=== PATIENT | female | born 1950 | race Caucasian/White ===

== ENCOUNTER 2017-05-23 12:06 | Inpatient (IN) | payer MEDICARE, OTHER ==
--- NOTE | ~2017-05-23 | HP ---
History And Physical [address] [place]. [address] NAME: CHIP HAINES : 50 STATUS : ADM IN [facility]#: [id number] AGE: 66 ADM/REG DATE : 05/23/17 MR#: [id number] REPORT SERV DATE: 05/23/17 DICTATED BY: RENEA SARAVIA DATE: 05/23/17 REPORT STATUS : Draft TRANSCRIBED BY: MODL DATE: 05/23/17 DATE OF ADMISSION: 05/23/2017 CHIEF COMPLAINT: Worsening shortness of breath. HISTORY OF PRESENTING ILLNESS: Ms. Haines is a 66-year-old female with a history of hypertension, coronary artery disease, hyperlipidemia, and pulmonary embolism who presented to the hospital with a complaint of worsening shortness of breath. Of note, the patient was discharged from the hospital on 12/10/2014 after being managed for bilateral pulmonary embolism. At that time, the patient was placed on Eliquis. The patient states that she was on medication for about a year and was taken off the medication by her outbound sales specialist. The patient also reports that a coagulopathy workup was performed by a outbound sales specialist which was negative. The patient states that her symptoms started about a month ago with progressive shortness of breath. She states that she was finding it more difficult to perform activities of daily living. She thought that her symptoms were transient and which is why she did not present today to the hospital earlier. However, she says that yesterday night, she felt severely short of breath, went to bed. Upon awakening this morning, she found it very difficult getting out of bed and could not do any activity. She decided to present to the emergency room to have her symptoms evaluated. On presentation to the emergency room, preliminary workup included blood work which noted an elevated troponin at 0.07. Workup also included a CTA of the chest which noted extensive bilateral pulmonary emboli. The patient was subsequently admitted to Hospitalist Service for further management. At the time of my evaluation, the patient was on IV heparin, and she was resting counseled comfortably in bed. She was not tachycardic and was saturating appropriately on 2 to 3 L nasal cannula. She denied any chest pain, lightheadedness, dizziness, or any syncopal episodes. She denied any nausea, any vomiting, or any fevers. REVIEW OF SYSTEMS: A 12-point review of system was performed. All systems were negative except as noted in the HPI. PAST MEDICAL HISTORY: 1. Hypertension. 2. Hyperlipidemia. 3. Osteoporosis. PAST SURGICAL HISTORY: Significant for foot surgery, tubal ligation. FAMILY HISTORY: Significant for: 1. CVA in mother. 2. Hypertension. 3. Hyperlipidemia. SOCIAL HISTORY: The patient admits to tobacco use stating that she currently smokes about one to three sticks of cigarette a week. She could not quantify how long she has been smoking for saying that it has been a very long time. Alcohol use, the patient currently History And Physical [address] [address] NAME: CHIP HAINES : 50 STATUS : ADM IN [facility]#: [id number] AGE: 66 ADM/REG DATE : 05/23/17 MR#: [id number] REPORT SERV DATE: 05/23/17 DICTATED BY: RENEA SARAVIA DATE: 05/23/17 REPORT STATUS : Draft TRANSCRIBED BY: HARITHA DATE: 05/23/17 uses alcohol in social settings. She also admitted to remote use of marijuana use, however, states she states she quit about 23 years ago. ALLERGIES: THE PATIENT IS ALLERGIC TO BACTRIM AND NITROFURANTOIN. PHYSICAL EXAMINATION: VITAL SIGNS: On presentation, blood pressure 109/55 with a pulse of 97, temperature 36.5, pulse 103, respiration 22, O2 saturation on room air 90%, however, increased to 98% on 2 L nasal cannula. GENERAL: The patient lying in bed, appeared stated age, in no acute distress. Speaking in full sentences. HEENT: Normocephalic and atraumatic. Extraocular motors intact. Oral mucosa moist. NECK: Trachea midline and symmetric. No JVD noted. No thyromegaly present. No lymphadenopathy palpated. CHEST: Nontender to palpation. CARDIOVASCULAR: Regular rate and rhythm. S1, S2. No murmurs, rubs, or gallops. LUNGS: Clear to auscultation bilaterally. No wheezing, rales, or rhonchi. ABDOMEN: Positive bowel sounds. Nontender. Nondistended. No masses palpated. EXTREMITIES: No cyanosis, no clubbing, no edema. NEUROLOGIC: Alert and oriented x3. No focal deficits appreciated. LABORATORY DATA: WBC 8.2, hemoglobin 13.8, hematocrit 40.1, platelets 221. Sodium 134, potassium 3.3, chloride 98, bicarb 30, BUN 16, creatinine 1, glucose 131. Troponin 0.07. IMAGING: CTA chest. Impression: 1. Extensive bilateral pulmonary emboli. 2. Small region of consolidation in the lingula. The lung steiner are otherwise clear. ASSESSMENT AND PLAN: 1. Pulmonary embolism, bilateral. The patient is hemodynamically stable which categorizes this as submassive. The patient reports current tobacco use which places this as provoked. The patient has a history of bilateral pulmonary embolism during which was managed here in the hospital in October 2014. Given recurrence of pulmonary embolism, the patient will need to be on indefinite anticoagulation therapy. However, for now, given the extensiveness of pulmonary emboli, we will consult Pulmonology for assistance and management. I will continue the patient on a heparin drip for now currently because the patient is hemodynamically stable. Vitals are all within normal limits. No indication for thrombolytic therapy at this point, however, as our course progress that may change. 2. Hypertension: Controlled. We will continue home medications. 3. Elevated troponin at 0.07, likely secondary to demand ischemia. We will trend troponin. Coronary artery disease, stable. The patient's atherosclerotic cardiovascular disease score is 10.3 indicating high-intensity statin therapy. Plan, we will discontinue simvastatin, start atorvastatin 40 mg p.o. daily. 4. Hyperlipidemia. We will manage as above. 5. Tobacco dependence. Spent time explaining to the patient the severe risk of continued smoking in the sense of recurrent bilateral pulmonary embolism. The patient is willing History And Physical [address] [address] NAME: CHIP HAINES : 50 STATUS : ADM IN PAT#: [id number] AGE: 66 ADM/REG DATE : 05/23/17 MR#: [id number] REPORT SERV DATE: 05/23/17 DICTATED BY: RENEA SARAVIA DATE: 05/23/17 REPORT STATUS : Draft TRANSCRIBED BY: HARITHA DATE: 05/23/[address] the patient on nicotine patch for now. 6. Osteoporosis. Currently on alendronate at home. We will continue current therapy. 7. Hypokalemia. Potassium at 3.3, we will replete potassium and monitor. CODE STATUS: The patient wishes to be full code at this time. The patient is already on a heparin drip. DOMINGUEZ/HARITHA Renea Saravia MD / [id number] CC: Jonas Manzano M.D.
--- NOTE | ~2017-05-23 | CN ---
Consultation Report [facility] [address] [place]. [address] NAME: CHIP HAINES : 50 STATUS : ADM IN PAT#: [id number] AGE: 66 ADM/REG DATE : 05/23/17 MR#: [id number] REPORT SERV DATE: 05/24/17 DICTATED BY: ЮЛИЯ IRVIN IV DATE: 05/24/17 REPORT STATUS : Draft TRANSCRIBED BY: MODMarlo DATE: 05/24/17 PULMONARY CONSULTATION DATE OF CONSULTATION: 05/24/2017 REASON FOR REQUEST: Bilateral pulmonary embolism. HISTORY OF PRESENT ILLNESS: History was obtained from the records and from the patient. Ms. Haines is a 66-year-old female with a past history of DVT and pulmonary embolism, COPD, tobacco dependency, hypertension, hyperlipidemia, who was admitted with recurrent pulmonary embolism. The patient was hospitalized in 10/2014 for bilateral pulmonary embolism. She had a previous history of left leg DVT in 2008. She was followed by an outside marker shipments and reportedly had her anticoagulation stopped last year. She states originally was for evaluation of hypercoagulable state; however, the medication was never resumed, and she is not sure of the results of the study, and never was provided followup. She has had problems with intermittent pain in her left leg for which she underwent evaluation in March with a repeat ultrasound demonstrating no clot. It was felt to be secondary to orthopedic injuries. She has noted waxing and waning dyspnea on exertion over the last few weeks associated with some chest tightness and increased cough and shortness of breath. She felt some of this was secondary to obstructive lung disease. She has been compliant with her Dulera as well as her Combivent. Because of the more acute symptoms over the last 48 hours, she had evaluation emergency room where CT angiogram demonstrated bilateral pulmonary embolism. Subsequent ultrasound demonstrated a left lower extremity clot. We were asked to assist in her care. The patient continues to smoke adding to her hypercoagulable state. She has two previous clots as noted above. The patient reportedly snores, though is unaware of apneic episodes. Sleep is nonrestorative. However, she does not complain of significant sedentary hypersomnolence. PULMONARY HISTORY: Remarkable for no history of childhood asthma or previous pneumonia. She has a history of adult COPD. She has more than [id number] smoker, who continues to smoke by her report only two cigarettes a week. She is a home health nurse. She is up-to-date on her immunizations. PAST MEDICAL HISTORY: Remarkable for: 1. History of DVT and pulmonary embolism. 2. COPD. 3. Tobacco use. 4. Hypertension. 5. Hyperlipidemia. SURGERIES: 1. She had tonsillectomy and adenoidectomy. 2. Abortions. Consultation Report [address] [place]. [address] NAME: CHIP HAINES : 50 STATUS : ADM IN [facility]#: [id number] AGE: 66 ADM/REG DATE : 05/23/17 MR#: [id number] REPORT SERV DATE: 05/24/17 DICTATED BY: ЮЛИЯ IRVIN IV DATE: 05/24/17 REPORT STATUS : Draft TRANSCRIBED BY: HARITHA DATE: 05/24/17 3. Right foot surgery. 4. Tubal ligation. ALLERGIES: SHE IS ALLERGIC TO SULFA DRUGS AND MACRODANTIN WITH A RASH. CURRENT MEDICATIONS: She is on a heparin drip, Caltrate D 600 mg twice a day, Claritin 10 mg daily, Diovan 80 mg daily, hydrochlorothiazide 12.5 mg daily, Dulera 2 puffs twice a day, Flonase 2 sprays each nostril daily, Habitrol patch 14 mg daily, hydrochlorothiazide 12.5 mg daily, Lipitor 40 mg at bedtime, and Refresh eye drops. SOCIAL HISTORY: Remarkable for tobacco use as above. She has rare social alcohol use. She used marijuana and cocaine in the distant past, but not in the last multiple years. FAMILY HISTORY: Remarkable for father requiring a pacemaker and a stroke in her mother. REVIEW OF SYSTEMS: 14-systems reviewed and pertinent positives as noted above. PHYSICAL EXAMINATION: GENERAL: This is an obese, elderly female, with intermittent cough though in no distress. She is on supplemental oxygen. VITAL SIGNS: Temperature is 98.1, pulse is 73, respiratory rate is 20, saturations are 100% on 2 L, and blood pressure is 109/60. HEENT: Normocephalic, atraumatic. Extraocular movements are intact. Pupils react to light. Sclerae and conjunctivae normal. She has nasal cannula in place. She has a Mallampati III airway with narrowing of the posterior pharyngeal space. NECK: Without any palpable lymphadenopathy or thyromegaly. CHEST: The patient has decreased breath sounds symmetrically. There are some basilar inspiratory crackles. There is a prolonged expiratory phase with expiratory wheezes. No rhonchi are noted. CARDIOVASCULAR: Jugular venous pulsations are difficult to elicit. She has 1+ carotid upstrokes. No obvious bruit. She has a regular distant S1, S2 with no clear murmur or S3. Peripheral pulses are diminished. ABDOMEN: Obese, soft, and nontender. There are hypoactive bowel sounds. There is no palpable hepatosplenomegaly or masses. Surgical scars are noted. EXTREMITIES: Demonstrate no cyanosis, clubbing, edema, or palpable cords. She has some varicose veins. NEUROLOGIC: Strength is 5/5 and sensation intact to light touch. LABORATORY DATA: Chest CT scan demonstrates bilateral pulmonary emboli, some in the regions of the previous clots with no study between these to document clearance. She has by report ultrasound demonstrating left lower extremity clot, which was not noted on the March study. CBC: Hemoglobin 11.4, hematocrit 33.9, platelet count 176,000, and white blood cell count is 5.9. Consultation Report [facility] [address] [place]. [address] NAME: CHIP HAINES : 50 STATUS : ADM IN [facility]#: [id number] AGE: 66 ADM/REG DATE : 05/23/17 MR#: [id number] REPORT SERV DATE: 05/24/17 DICTATED BY: ЮЛИЯ IRVIN IV DATE: 05/24/17 REPORT STATUS : Draft TRANSCRIBED BY: HARITHA DATE: 05/24/17 Chemistry: Sodium 140, potassium 3.7, chloride 105, bicarbonate was 30, BUN 13, creatinine 0.76, glucose of 126, Mag and phos are both normal. Albumin was 2.3. Troponin was 0.07 and now at 0.03. ASSESSMENT AND PLAN: 1. Hematologic. The patient should have remained on anticoagulation after the October study with a history of two clots in the past. CT angiogram should be obtained in three months to evaluate for clot resolution. There may be a component of chronic clot which never previously cleared. We will change to Eliquis 10 mg twice a day and stop heparin at that time. 2. Respiratory. The patient likely has significant underlying chronic obstructive pulmonary disease. She will be given prednisone 40 mg now, then every morning. We will add Spiriva 1 capsule daily. Remain on the Dulera. Albuterol be given q.4 hours while awake and q.2 hours as needed. Outpatient sleep evaluation for clinical obstructive sleep apnea. 3. Cardiovascular. There is no evidence for right ventricular dysfunction or elevated right-sided pressures on the echocardiogram obtained yesterday. Troponin bump was likely secondary to the pulmonary embolism. 4. Renal. Potassium has been replaced. We will repeat electrolytes tomorrow. 5. Neurologic. We reviewed the adverse effects of continued tobacco use even at her reported minimal amount and its effect on hypercoagulability. She is on Habitrol patch. More than 5 minutes was sent with smoking cessation recommendations. Thank you for consulting us. We will follow the patient with you. ANITRA/HARITHA Юлия Irvin IV, M.D. / [id number] CC: MD Marcus Vargas M.D.
--- NOTE | ~2017-05-23 | DS ---
Discharge Summary [facility] [address] [place]. [address] NAME: CHIP HAINES : 50 STATUS : DIS IN PAT#: [id number] AGE: 66 ADM/REG DATE : 05/23/17 MR#: [id number] REPORT SERV DATE: 05/27/17 DICTATED BY: RENEA SARAVIA DATE: 05/26/17 REPORT STATUS : Draft TRANSCRIBED BY: MODL DATE: 05/26/17 ADMISSION DATE: 05/23/2017 DISCHARGE DATE: 05/26/2017 Ms. Haines is a 66-year-old female with a history of hypertension, coronary artery disease, hyperlipidemia, and pulmonary embolism in 2013 who presented to the hospital with a complaint of shortness of breath and was found to have bilateral extensive pulmonary emboli and subsequently admitted under Hospitalist Service for further management. For further details, please refer to H and P dictated by me on 05/23/2017. HOSPITAL COURSE: Upon presentation to the hospital with a complaint of shortness of breath, the patient had a CTA which noted extensive bilateral pulmonary embolism. The patient was subsequently admitted on the Hospitalist Service for further management and placed on heparin drip. Given severity of her disease, Pulmonology was consulted to assist in management. Transthoracic echo was obtained to evaluate the effect of the clot burden on her heart. TTE came back with no right ventricular strain. The patient also had bilateral lower extremity Doppler exam to determine the etiology of her clot. The Doppler ultrasound came back positive for left excessive DVT. The patient was transitioned from heparin to Eliquis and observed. The patient has remained hemodynamically stable. Her shortness of breath has significantly improved. Also, given her history of COPD, the patient was placed on p.o. steroids by Pulmonology. The patient has remained hemodynamically stable throughout her hospitalization with improvement of her symptoms. Given these findings, the patient will be discharged today to follow up with Pulmonology as outpatient. Plan has been discussed with the patient, who voices understanding and is agreeable with this plan. DISCHARGE DIAGNOSES: 1. Bilateral pulmonary embolism. 2. Left lower extremity deep venous thrombosis. 3. Elevated troponin. 4. Chronic obstructive pulmonary disease. 5. Coronary artery disease. 6. Tobacco dependence. DISCHARGE EXAM: VITAL SIGNS: Blood pressure 107/57 with a pulse of 71, respiration 18, O2 saturation 96% on room air. GENERAL: The patient sitting in bed, in no acute distress. Appears stated age. Speaking in full sentences. HEENT: Normocephalic and atraumatic. Extraocular motors intact. Moist oral mucosa. NECK: Trachea midline and symmetric. No JVD noted. No thyromegaly present. No lymphadenopathy palpated. CHEST: Nontender to palpation. CARDIOVASCULAR: Regular rate and rhythm. S1, S2. No murmurs, rubs, or gallops. LUNGS: Clear to auscultation bilaterally. ABDOMEN: Positive bowel sounds. Nontender. Nondistended. Obese. EXTREMITIES: No cyanosis, no clubbing, no edema. NEUROLOGIC: Alert and oriented x3. No focal deficits appreciated. Discharge Summary [address] [place]. [address] NAME: CHIP HAINES : 50 STATUS : DIS IN PAT#: [id number] AGE: 66 ADM/REG DATE : 05/23/17 MR#: [id number] REPORT SERV DATE: 05/27/17 DICTATED BY: RENEA SARAVIA DATE: 05/26/17 REPORT STATUS : Draft TRANSCRIBED BY: HARITHA DATE: 05/26/17 DISCHARGE MEDICATIONS: 1. Eliquis 10 mg p.o. daily. 2. Refresh 0.3 mL ophthalmic solution twice a day. 3. Caltrate 600+D tab 600 mg p.o. twice a day. 4. Zyrtec 10 mg p.o. daily. 5. Prednisone 40 mg p.o. with breakfast for two days. 6. Dulera two puff inhalation twice a day. 7. Diovan 80/12.5 mg tab take one tab p.o. daily. 8. Alendronate 70 mg p.o. on Sundays. 9. Triamcinolone two sprays nasally per nostril. IMAGING: CTA chest. Impression: 1. Extensive bilateral pulmonary emboli. 2. Small region of consolidations in the lingula, but the lung steiner are otherwise clear. Bilateral lower extremity Doppler exam. Impression: Acute left lower extremity deep venous thrombosis involving the left common femoral vein, left femoral vein, and left popliteal vein. For further details, please refer to study from 05/24/2017. Transthoracic echo with normal findings. Please refer to TTE of 05/24/2017. CONSULT: [employer], Dr. Irvin of pulmonology. Please for further details, refer to consultation note by Pulmonology. DISPOSITION: The patient will be discharged to home. ACTIVITY: As tolerated. DIET: Regular. Greater than 30 minutes was spent providing counseling, dictation of note, medication reconciliation, coordinating discharge. DICTATED BY: MD DOMINGUEZ Vargas/HARITHA Renea Saravia MD / [id number] CC: Discharge Summary [address] [address] NAME: CHIP HAINES : 50 STATUS : DIS IN PAT#: [id number] AGE: 66 ADM/REG DATE : 05/23/17 MR#: [id number] REPORT SERV DATE: 05/27/17 DICTATED BY: RENEA SARAVIA DATE: 05/26/17 REPORT STATUS : Draft TRANSCRIBED BY: HARITHA DATE: 05/26/17 MD Marcus Vargas M.D.
[~2017-05-23 12:06] MED LIST: ADVAIR100 INH; CALTRA600D PO; CLARIT10 PO; COMBIVENT INH; DIOV80 PO; DIOVAN HCT PO; ELIQUIS 5 MG TAB5 MG PO; FOSAMAX35 MG PO; GLUCXL2.5 PO; HYDROCHLOROT25 MG PO; LORCET PO; NORCO1 TA1 PO; NORV25 PO; OCUFLOX OPH; PREDFORTE OPH; PRISTIQ50 MG PO; V2 PO; ZOCOR20 PO; ZOCOR40 PO
[2017-05-23 12:31] LABS: BASOPHILS 0.4 %; BASOPHILS ABSOLUTE 0.03 10/3/uL (0.0-0.16); EOSINOPHILS 0.5 %; EOSINOPHILS ABSOLUTE 0.04 10/3/uL (0.0-0.53); HEMATOCRIT 40.1 % (36.0-48.0); HEMOGLOBIN 13.8 g/dL (12.0-16.0); IMMATURE GRANULOCYTES 0.4 %; IMMATURE GRANULOCYTES ABSOLUTE 0.03 10/3/uL (0.0-0.11); LYMPHOCYTES 14.3 %; LYMPHOCYTES ABSOLUTE 1.18 10/3/uL (0.67-4.30); MEAN CORPUS HGB CONC 34.4 g/dL (32.0-36.0); MEAN CORPUSCULAR HEMOGLOB 30.3 pg (26.0-34.0); MEAN CORPUSCULAR VOLUME 88.1 fL (80-100); MEAN PLATELET VOLUME 9.2 fL (9.2-13.0); MONOCYTES ABSOLUTE 0.66 10/3/uL (0.21-1.20); NEUTROPHILS 76.4 %; PLATELET COUNT 221 10/3/uL (150-400); RBC DISTRIBUTION WIDTH 12.3 % (12.0-16.0); RED CELL COUNT 4.55 10/6/uL (4.0-5.6)
[2017-05-23 12:32] LABS: MANUAL DIFF NO %; WHITE BLOOD CELLS 8.2 10/3/uL (4.5-10.5)
[2017-05-23 12:38] LABS: INTERNATIONAL NORMAL RATI 1.1 UNITS (-); PARTIAL THROMBO TIME 25.4 SEC (22.5-37.2); PROTIME (NOT ORD) 14.4 SEC (12.0-14.5)
[2017-05-23 12:55] LABS: BUN (BLOOD UREA NITROGEN) 16 MG/DL (6-23); CALCIUM, SERUM 9.6 MG/DL (8.5-10.4); CHLORIDE, SERUM 98 MMOL/L (96-112); CO2 (CARBON DIOXIDE) 30 MMOL/L (24-34); GFR AFRICAN AMERICAN 68 ML/MIN (>=60); GFR NON AFRICAN AMERICAN 59 ML/MIN (>=60); GLUCOSE, SERUM 131 MG/DL (60-99); POTASSIUM, SERUM 3.3 MMOL/L (3.5-5.3)
[2017-05-23 12:56] LABS: SODIUM, SERUM 134 MMOL/L (135-148)
[2017-05-23 12:57] LABS: CHEST PAIN PROFILE TAT 0 Hrs 31 Mins; TROPONIN I 0.07 NG/ML (<0.05)
[2017-05-23] MEDS ORDERED: ZYRTEC ALLGY10 MG PO (16:29)
[2017-05-23] MEDS ORDERED: DIOVAN HCT PO (16:29)
[2017-05-23] MEDS ORDERED: HYDROCHLOROT12.5 MG PO (16:30)
[2017-05-23] MEDS ORDERED: CALTRA600D PO (16:30)
[2017-05-23] MEDS ORDERED: ZOCOR40 PO (16:30)
[2017-05-23] MEDS ORDERED: NASACORTAQ NAS (16:31)
[2017-05-23] MEDS ORDERED: COMBIVENT RESPIM4 GM INH (16:31)
[2017-05-23] MEDS ORDERED: ADVIL PO (16:31)
[2017-05-23] MEDS ORDERED: REFRESH OPH SO0.3 ML OPH (16:32)
[2017-05-23] MEDS ORDERED: FOSAMAX70 MG PO (16:32)
[2017-05-23] MEDS ORDERED: DULERA 100 MCG/13 GM INH (16:35)
[2017-05-24 07:14] LABS: BASOPHILS 0.3 %; BASOPHILS ABSOLUTE 0.02 10/3/uL (0.0-0.16); EOSINOPHILS 4.1 %; EOSINOPHILS ABSOLUTE 0.24 10/3/uL (0.0-0.53); HEMOGLOBIN 11.4 g/dL (12.0-16.0); IMMATURE GRANULOCYTES 0.3 %; IMMATURE GRANULOCYTES ABSOLUTE 0.02 10/3/uL (0.0-0.11); LYMPHOCYTES 32.4 %; LYMPHOCYTES ABSOLUTE 1.92 10/3/uL (0.67-4.30); MEAN CORPUS HGB CONC 33.6 g/dL (32.0-36.0); MEAN CORPUSCULAR HEMOGLOB 30.2 pg (26.0-34.0); MEAN CORPUSCULAR VOLUME 89.7 fL (80-100); MEAN PLATELET VOLUME 8.9 fL (9.2-13.0); MONOCYTES 10.6 %; MONOCYTES ABSOLUTE 0.63 10/3/uL (0.21-1.20); NEUTROPHILS 52.3 %; NEUTROPHILS ABSOLUTE 3.09 10/3/uL (2.02-8.40); PLATELET COUNT 176 10/3/uL (150-400); RBC DISTRIBUTION WIDTH 12.4 % (12.0-16.0); RED CELL COUNT 3.78 10/6/uL (4.0-5.6); WHITE BLOOD CELLS 5.9 10/3/uL (4.5-10.5)
[2017-05-24 07:18] LABS: HEMATOCRIT 33.9 % (36.0-48.0); MANUAL DIFF NO %
[2017-05-24 07:32] LABS: BUN (BLOOD UREA NITROGEN) 13 MG/DL (6-23); CHLORIDE, SERUM 105 MMOL/L (96-112); CO2 (CARBON DIOXIDE) 30 MMOL/L (24-34); CREATININE 0.76 MG/DL (0.55-1.02); GFR AFRICAN AMERICAN 95 ML/MIN (>=60); GFR NON AFRICAN AMERICAN 82 ML/MIN (>=60); GLUCOSE, SERUM 126 MG/DL (60-99); POTASSIUM, SERUM 3.7 MMOL/L (3.5-5.3); SGOT(AST) 10 U/L (5-40); SGPT(ALT) 12 U/L (5-65); SODIUM, SERUM 140 MMOL/L (135-148); TOTAL BILIRUBIN 0.6 MG/DL (0-1.2); TROPONIN I 0.03 NG/ML (<0.05)
[2017-05-24 07:33] LABS: A/G RATIO 0.8 (0.7-1.9); ALBUMIN 2.3 G/DL (3.5-5.0); ALKALINE PHOSPHATASE 59 U/L (45-117); CALCIUM, SERUM 8.2 MG/DL (8.5-10.4); CHOL/HDL RATIO(NOT ORDER) 2.8 (0-5); CHOLESTEROL 124 MG/DL (< 200); HDL CHOLESTEROL 44 MG/DL (> 49); LDL CHOLESTEROL 66 MG/DL (< 130); NON-HDL CHOLESTEROL 80 MG/DL (< 160); TOTAL PROTEIN 5.3 G/DL (6.0-8.5); TRIGLYCERIDE 72 MG/DL (< 150)
[2017-05-24 08:48] LABS: PHOSPHORUS, SERUM 2.6 MG/DL (2.5-4.5)
[2017-05-25 06:26] LABS: BASOPHILS 0.1 %; BASOPHILS ABSOLUTE 0.01 10/3/uL (0.0-0.16); EOSINOPHILS 0.1 %; EOSINOPHILS ABSOLUTE 0.01 10/3/uL (0.0-0.53); HEMATOCRIT 32.7 % (36.0-48.0); IMMATURE GRANULOCYTES 0.2 %; IMMATURE GRANULOCYTES ABSOLUTE 0.02 10/3/uL (0.0-0.11); LYMPHOCYTES 14.2 %; LYMPHOCYTES ABSOLUTE 1.14 10/3/uL (0.67-4.30); MEAN CORPUS HGB CONC 33.6 g/dL (32.0-36.0); MEAN CORPUSCULAR HEMOGLOB 30.1 pg (26.0-34.0); MEAN CORPUSCULAR VOLUME 89.3 fL (80-100); MEAN PLATELET VOLUME 9.2 fL (9.2-13.0); MONOCYTES 10.2 %; MONOCYTES ABSOLUTE 0.82 10/3/uL (0.21-1.20); NEUTROPHILS 75.2 %; NEUTROPHILS ABSOLUTE 6.04 10/3/uL (2.02-8.40); RBC DISTRIBUTION WIDTH 12.1 % (12.0-16.0); RED CELL COUNT 3.66 10/6/uL (4.0-5.6)
[2017-05-25 06:29] LABS: MANUAL DIFF NO %; PLATELET COUNT 241 10/3/uL (150-400)
[2017-05-25 06:38] LABS: BUN (BLOOD UREA NITROGEN) 9 MG/DL (6-23); CALCIUM, SERUM 9.1 MG/DL (8.5-10.4); CHLORIDE, SERUM 109 MMOL/L (96-112); CO2 (CARBON DIOXIDE) 27 MMOL/L (24-34); CREATININE 0.63 MG/DL (0.55-1.02); GFR AFRICAN AMERICAN 108 ML/MIN (>=60); GFR NON AFRICAN AMERICAN 93 ML/MIN (>=60); GLUCOSE, SERUM 137 MG/DL (60-99); SODIUM, SERUM 141 MMOL/L (135-148)
[2017-05-26 05:44] LABS: BASOPHILS 0.1 %; BASOPHILS ABSOLUTE 0.01 10/3/uL (0.0-0.16); EOSINOPHILS 0.1 %; EOSINOPHILS ABSOLUTE 0.01 10/3/uL (0.0-0.53); HEMATOCRIT 33.2 % (36.0-48.0); HEMOGLOBIN 11.1 g/dL (12.0-16.0); IMMATURE GRANULOCYTES 0.3 %; IMMATURE GRANULOCYTES ABSOLUTE 0.03 10/3/uL (0.0-0.11); LYMPHOCYTES ABSOLUTE 1.49 10/3/uL (0.67-4.30); MEAN CORPUS HGB CONC 33.4 g/dL (32.0-36.0); MEAN CORPUSCULAR HEMOGLOB 30.4 pg (26.0-34.0); MEAN PLATELET VOLUME 9.1 fL (9.2-13.0); MONOCYTES 8.9 %; MONOCYTES ABSOLUTE 0.78 10/3/uL (0.21-1.20); NEUTROPHILS 73.6 %; NEUTROPHILS ABSOLUTE 6.45 10/3/uL (2.02-8.40); PLATELET COUNT 266 10/3/uL (150-400); RBC DISTRIBUTION WIDTH 12.1 % (12.0-16.0); RED CELL COUNT 3.65 10/6/uL (4.0-5.6); WHITE BLOOD CELLS 8.8 10/3/uL (4.5-10.5)
[2017-05-26 05:51] LABS: MANUAL DIFF NO %
[2017-05-26 06:02] LABS: A/G RATIO 0.8 (0.7-1.9); ALBUMIN 2.6 G/DL (3.5-5.0); CALCIUM, SERUM 9.2 MG/DL (8.5-10.4); CHLORIDE, SERUM 109 MMOL/L (96-112); CO2 (CARBON DIOXIDE) 25 MMOL/L (24-34); CREATININE 0.78 MG/DL (0.55-1.02); GFR AFRICAN AMERICAN 92 ML/MIN (>=60); GFR NON AFRICAN AMERICAN 79 ML/MIN (>=60); GLOBULIN 3.1 G/DL (2.5-4.1); GLUCOSE, SERUM 129 MG/DL (60-99); POTASSIUM, SERUM 3.8 MMOL/L (3.5-5.3); SGOT(AST) 10 U/L (5-40); SGPT(ALT) 14 U/L (5-65); SODIUM, SERUM 142 MMOL/L (135-148); TOTAL BILIRUBIN 0.2 MG/DL (0-1.2); TOTAL PROTEIN 5.7 G/DL (6.0-8.5)
[2017-05-26 06:05] LABS: ALKALINE PHOSPHATASE 46 U/L (45-117); BUN (BLOOD UREA NITROGEN) 13 MG/DL (6-23)
[2017-05-26] MEDS ORDERED: P20 PO (10:24)
[2017-05-26] MEDS ORDERED: ATV.5 PO (10:26)
[2017-05-26] MEDS ORDERED: LIPITOR40 PO (10:26)
[2017-05-26] MEDS ORDERED: PROAIR HFA INH (10:27)
[2017-05-26] MEDS ORDERED: XARELTO15 MG PO (15:09)
[2017-05-26] MEDS ORDERED: BREO ELLIPTA 21 EACH INH (15:13)
[2017-05-26] MEDS ORDERED: XARELTO20 MG PO (15:13)
[2017-05-26] MEDS ORDERED: ANOROELLIPTA INH (15:14)
== END 2017-05-26 16:57 | disposition home health service (06) | DRG 176 ==
LOC: ER 12:06 → 6NO 17:39
PROVIDERS: Emergency Medicine; Hospitalist
DX: I26.99 Other pulmonary embolism without acute cor pulmonale (principal); D68.59 Other primary thrombophilia; I24.8 Other forms of acute ischemic heart disease; I82.402 Acute embolism and thrombosis of unspecified deep veins of left lower extremity; I10 Essential (primary) hypertension; J44.9 Chronic obstructive pulmonary disease, unspecified; F17.210 Nicotine dependence, cigarettes, uncomplicated; I25.10 Atherosclerotic heart disease of native coronary artery without angina pectoris; R73.9 Hyperglycemia, unspecified; E78.5 Hyperlipidemia, unspecified; Z86.711 Personal history of pulmonary embolism; Z86.718 Personal history of other venous thrombosis and embolism; Z88.2 Allergy status to sulfonamides; Z82.3 Family history of stroke
CPT/HCPCS: 71020; 71275; 80048; 80053; 80061; 83735; 84100; 84484; 85025; 85610; 85730; 93005; 93970; 94640; 96374; 99291; A9270-GY; C8929; Q9957; Q9967